=== PATIENT | female | born 1945 ===

== ENCOUNTER 2017-10-04 00:09 | Inpatient (IN) | payer MEDICARE, OTHER ==
--- NOTE | 2017-09-29 17:27 | HISTORY AND PHYSICAL ---
DATE OF ADMISSION: October 04, 2017 IDENTIFICATION/CHIEF COMPLAINT Lizet is a 71-year-old woman with the chief complaint of right knee pain. HISTORY OF PRESENT ILLNESS Patient has a long-standing history of knee arthritis, progressively painful and debilitating, refractory to conservative care. Surgery is indicated to relieve symptoms after failure of nonoperative measures. PAST MEDICAL HISTORY * Hypertension controlled on medication. * Snoring, but no sleep apnea. * Remote history of bronchitis. * History of rheumatoid and osteoarthritis. * Type 2 diabetes. * Clinical depression. PAST SURGICAL HISTORY * Hysterectomy. * Excision of Gottlieb's neuroma. * Breast reduction and tummy tuck. * Breast biopsy. ALLERGIES * PENICILLIN, causes hives. * ADHESIVE, causes skin irritation, not a true drug reaction. CURRENT MEDICATIONS * Valsartan/hydrochlorothiazide 320/25 one p.o. q.day. * Metformin 500 mg p.o. q.day. * Nifedipine 60 mg p.o. q.day. * Venlafaxine 75 mg p.o. q.day. * Simvastatin 40 mg p.o. q.day. SOCIAL HISTORY Negative for tobacco and alcohol use. FAMILY HISTORY Notable for mother with dementia, father and grandfather with MD. REVIEW OF SYSTEMS Otherwise negative. PHYSICAL EXAMINATION GENERAL: This is a healthy female. HEENT: Normocephalic, atraumatic. NECK: Supple. LUNGS: Clear. HEART: Regular. ABDOMEN: Soft. ORTHOPEDIC EXAM: The right knee has an effusion. Crepitus is noted. Gross stability is good. Extensor function is intact. She is still at the end range. IMAGING Radiographs demonstrate end-stage DJD. ASSESSMENT Right knee end-stage degenerative joint disease, progressively painful and debilitating, refractory to conservative care. PLAN Per patient request, we are going to proceed with total knee arthroplasty. The nature of the procedure, risks, benefits, the anticipated rehab course were reviewed. The risks of the procedure include, but are not limited to , major medical or anesthetic complication, infection, neurovascular injury, blood transfusion, stiffness, scarring, fracture, tendon rupture or instability , implant loosening, migration or failure, persistent or recurrent pain, need for additional surgery and other unforeseen. She understands and wishes to proceed. A signed consent was placed in the chart. No guarantees are given or implied. JEFFERSON
[2017-10-03 15:15] LABS: INR 0.96
[2017-10-04] VITALS (15 sets, daily range): BP systolic 106–168; BP diastolic 50–88
[~2017-10-04] VITALS: Ht 167.6 cm; Wt 88.5 kg
[~2017-10-04 00:09] MED LIST: ACET-2708 PO; METF-410 PO; NAPR220C12 PO; NIFE60TA77 PO; SIMV-54 PO; VALS1TAB10 PO; VENL75TA12 PO
[2017-10-04] MEDS ORDERED: FAMOTIDINE 20 MG TAB PO ONE (08:00)
[2017-10-04] MEDS ORDERED: MIDAZOLAM 2 MG/2 ML VIAL IVP PRN (08:00)
[2017-10-04] MEDS ORDERED: TRANEXAMIC AC 1000 MG/10ML SDV 1,000 MG in DEXTROSE 5% 50 ML BAG 50 ML IV ONE (08:00)
[2017-10-04] MEDS ORDERED: LIDOCAINE/SOD BICARB 8.4% SYR ID ONE (08:00)
[2017-10-04] MEDS ORDERED: cloNIDine EPIDUR INJ 100MCG/ML 40 MCG, ROPIVACAINE 0.5% 20 ML VIAL 25 ML, EPINEPHrine H... INJ ONE (08:00)
[2017-10-04] MEDS ORDERED: NORMOSOL R SOLN(*) 1000 ML BAG 1,000 ML IV PRN ×2 (08:00→10:40)
[2017-10-04] MEDS ORDERED: CLINDAMYCIN(*) 900 MG/NS 50 ML 50 ML IVPB ONE (08:00)
[2017-10-04] MEDS ORDERED: fentaNYL CITR 100 MCG/2 ML AMP ONE ×2 (08:21→09:27)
[2017-10-04] MEDS ORDERED: LIDOCAINE 2% IV 100 MG/5ML SYR ONE (08:22)
[2017-10-04] MEDS ORDERED: PROPOFOL EMUL(*) 10MG/ML 20 ML 20 ML ONE (08:24)
[2017-10-04] MEDS ORDERED: DEXAMETHASONE SOD 4 MG/ML VIAL ONE (08:46)
[2017-10-04] MEDS ORDERED: ONDANSETRON 4 MG/2 ML VIAL ONE (08:47)
[2017-10-04] MEDS ORDERED: EPHEDRINE SULFATE/NS/PF 50 MG/10 ML SYRINGE ONE (08:48)
[2017-10-04] MEDS ORDERED: KETAMINE HCL 200 MG/20 ML MDV ONE ×3 (09:02→09:40)
[2017-10-04] MEDS ORDERED: PROMETHAZINE 25 MG/ML 1 ML AMP IVP PRN (10:40)
[2017-10-04] MEDS ORDERED: BENZOCAINE/MENTHOL 1 EACH LOZG PO PRN (10:40)
[2017-10-04] MEDS ORDERED: MAGNESIUM HYDROXIDE* 30ML UDCP PO PRN (10:40)
[2017-10-04] MEDS ORDERED: diphenhydrAMINE 50 MG/ML VIAL IVP PRN (10:40)
[2017-10-04] MEDS ORDERED: ACETAMINOPHEN 325 MG TAB PO PRN (10:40)
[2017-10-04] MEDS ORDERED: ZOLPIDEM TARTRATE 5 MG TAB PO PRN (10:40)
[2017-10-04] MEDS ORDERED: FLUSH 10 ML SYR IVP PRN (10:40)
[2017-10-04] MEDS ORDERED: diphenhydrAMINE 25 MG CAP PO PRN (10:40)
[2017-10-04] MEDS ORDERED: BISACODYL 10 MG SUPP PR PRN (10:40)
[2017-10-04] MEDS ORDERED: ALBUTEROL/IPRATROPIUM 3 ML NEB ONE (11:42)
[2017-10-04] MEDS: APAP/HYDROCODONE 325/7.5 TAB PO PRN ×2 (12:33→17:01)
[2017-10-04] MEDS ORDERED: VALSARTAN 80 MG TAB PO ONE (12:50)
--- NOTE | 2017-10-04 13:04 | Hospitalist Consultation ---
History of Present Illness Requesting Physician Dr. Mobley Reason for Consult Medication Management Chief Complaint s/p right total knee replacement History of Present Illness She was admitted s/p right total knee replacement. It was reported the surgery went well and without complication. History Problems: (1) Hypertension Status: Chronic (2) Diabetes mellitus, type 2 Status: Chronic (3) Depression Status: Chronic (4) Hyperlipidemia Status: Chronic Home Meds Reported Medications Naproxen Sodium (ALEVE) 220 Mg Capsule, 220 MG PO DAILY, CAPSULE 09/28/17 Acetaminophen/Diphenhydramine (ACETAMINOPHEN PM CAPLET) 1 Each Tablet, 1 EACH PO QHS, TAB 09/28/17 Metformin Hcl (METFORMIN HCL) 500 Mg Tablet, 1 TAB PO QDAY, TAB 09/28/17 Simvastatin (SIMVASTATIN) 40 Mg Tablet, 40 MG PO DAILY, TAB 09/28/17 Venlafaxine Hcl (VENLAFAXINE HCL) 75 Mg Tab, 75 MG PO DAILY, TAB 09/28/17 Nifedipine (PROCARDIA XL) 60 Mg Tab.er.24, 60 MG PO QDAY 09/28/17 Valsartan/Hydrochlorothiazide (VALSARTAN-HCTZ 320-25 MG TAB) 1 Each Tablet, 1 EACH PO DAILY 09/28/17 Allergies: Coded Allergies: Penicillins (Verified Allergy, Mild, HIVES, 09/28/17) adhesive tape (Verified Allergy, Mild, PULLED SKIN OFF, 09/28/17) MAY USE PAPER TAPE Patient History: FH: dementia MOTHER FH: heart attack FATHER Hx Smoking: Yes (QUIT 50 YEARS AGO) Smoking Status: Former Smoker Exposure to Second Hand Smoke?: No Caffeine Intake: Coffee, Soda Caffeine/Cups Per Day: 4 CUPS A DAY Hx Alcohol Use: Yes (RARELY) Hx Substance Use Disorder: No History of IV Drug Use: No Review of Systems All Systems Reviewed/Normal: Yes, Except as Noted Exam Vital Signs Vital Signs Date Time Temp Pulse Resp B/P (MAP) Pulse Ox O2 Delivery O2 Flow Rate FiO2 10/04/17 11:58 96 16 90 10/04/17 06:50 97.2 168/88 (114) Room Air General Appearance: Alert, Awake, No Acute Distress, Afebrile Neuro: No Gross deficits Cardiovascular: Regular Rate and Rhythm Respiratory: No Respiratory Distress, Clear to Auscultation GI: Abd Soft and Non-Tender Psych: Alert & Oriented X3, Appropriate Mood & Affect Assessment and Plan Problems: (1) Status post total right knee replacement Status: Acute Assessment & Plan: Followed by Dr. Mobley. She will be placed on Aspirin 325mg for 30 days for DVT prophylaxis. She has no history of DVT or PE. (2) Hypertension Status: Chronic Assessment & Plan: She is on chronic treatment with Nifedipine, Valsartan and hydrochlorothiazide. These medications have been restarted with hold parameters. (3) Diabetes mellitus, type 2 Status: Chronic Assessment & Plan: She is on chronic treatment with Metformin. We will check her sugars AC and HS, as well as add an ADA diet. (4) Hyperlipidemia Status: Chronic Assessment & Plan: She is on chronic treatment with Simvastatin. (5) Depression Status: Chronic Assessment & Plan: She is on chronic treatment with Venlafaxine. Venous Thromboembolism Antithrombotics Is Pt On Any Antithrombotics?: No Prophylaxis Tx Contraindicated Pharmacological Contraindicati: Surgical Contraindication Problem Qualifiers (1) Hypertension: Hypertension type: essential hypertension Qualified Codes: I10 - Essential ( primary) hypertension JONA MCGRATH IN [employer] TECHNICIAN Oct 04, 2017 13:04
--- NOTE | 2017-10-04 13:35 | RADIOLOGY IMAGING REPORT ---
FACILITY: [facility] PATIENT NAME: Lizet Hernandez : 1945 MR: [id number] V: [id number] EXAM DATE: ORDERING PHYSICIAN: JOSELITO PARISI TECHNOLOGIST: Location: [facility] - [place] Patient: Lizet Hernandez : 1945 Visit/Account:[id number] Date of Sevice: 10/04/2017 Exam type: KNEE LIMITED RIGHT History: S/P RIGHT TKA Comparison: None. Findings: Two views of the right knee demonstrate a right hip arthroplasty that appears in good anatomic alignm ent. Soft tissue gas and skin tasha project over the anterior aspect this postoperative knee IMPRESSION: 1. As above Report Dictated By: April Cox MD at 10/04/2017 1:30 PM Report E-Signed By: April Cox MD at 10/04/2017 1:30 PM WSN:[email or web address]
[2017-10-04] MEDS: DIAZEPAM 5 MG TAB PO PRN (14:08)
[2017-10-04] MEDS ORDERED: NS(*) 0.9% 500 ML BAG 500 ML ONE (16:51)
[2017-10-04] MEDS ORDERED: ceFAZolin(*) 1 GM VIAL 1 GM in NS(*) 0.9% 100 ML ADDVANT BAG 100 ML IVPB SCH (17:00)
[2017-10-04] MEDS ORDERED: CLINDAMYCIN(*) 900 MG/NS 50 ML 50 ML IVPB SCH (17:00)
[2017-10-04] MEDS: CELECOXIB 200 MG CAP PO SCH (17:02)
[2017-10-04] MEDS: CLINDAMYCIN(*) 900 MG/NS 50 ML 50 ML IVPB SCH (17:03)
[2017-10-04] MEDS: INSULIN HUM LISPRO 100 UN/ML 3 ML VIAL SUBQ PRN ×2 (17:35→21:48)
--- NOTE | 2017-10-04 19:33 | OPERATIVE REPORT 1 ---
EVENT DATE: October 04, 2017 SURGEON: Gilbert Mobley MD ANESTHESIOLOGIST: Prasad Shrestha MD ANESTHESIA: General plus spinal. SUPERVISOR INSPECTING: James Vyas PA-C PREOPERATIVE DIAGNOSIS Right knee degenerative joint disease. POSTOPERATIVE DIAGNOSIS Right knee degenerative joint disease. PROCEDURE PERFORMED Right total knee arthroplasty. ESTIMATED BLOOD LOSS Minimal. DRAINS None. SPECIMENS None. COMPLICATIONS None apparent. TOURNIQUET TIME 44 minutes IMPLANTS USED PostBeyondathlon Knee System, a 5 right PS femur, 5 standard tibial baseplate, 33 mm universal cemented all-polyethylene patellar button, and an 11 mm PS tibial tray liner. Polyethylene is X3. INDICATIONS Marguerite is 70-year-old woman with intractable and disability related to end-stage knee arthritis. Surgery is indicated to relieve symptoms after failure of nonoperative measures. DESCRIPTION OF PROCEDURE Patient was taken to the operating room, placed supine on the operating table. Spinal block was administered by the anesthesiologist. General anesthesia was induced. Antibiotics were administered IV. Right lower extremity was prepped and draped in the usual sterile fashion for knee arthroplasty. Limb exsanguinated with an Esmarch bandage. Tourniquet inflated to 275 mmHg. A midline longitudinal incision was made, carried down through skin and subcutaneous tissue to the extensor mechanism. Full-thickness flaps developed far enough medially to allow medial parapatellar arthrotomy be performed. Patella was everted. Knee was put into the flexed position. Fat pad, anterior horns of the menisci, and the cruciate ligaments were debrided. A subperiosteal capsular release was performed 1 cm circumferentially around the upper plateau. A step drill was used to enter the distal femur. A 10 cm alignment guide was used to engage the isthmus, cut set for 6 degrees of valgus relative to the anatomic axis. A 10 mm resection block is applied, pinned, cuts made with an oscillating saw. AP sizing guide is applied to the distal femur. There is no hypoplasia. Three degrees of external rotation over the posterior condyle is planned. Size 5 is optimal. A double check is made due to the valgus knee to make sure this aligns appropriately with the epicondylar axis and Dillard line, and this is fine. A four-in-one cutting block is applied. Anterior, posterior, posterior chamfer, and anterior chamfer cuts are made with respectively. PS block is applied and centered. Medial and lateral bone is removed from the box. Trial femur has nice [id number] fit. Attention is turned to tibial preparation. Extramedullary guide is applied and positioned for varus, valgus, posterior slope, and rotation. It is set to resect 2 mm from the relatively deficient lateral tibial plateau. Block is pinned. Extramedullary alignment check is made, and the cut is made with an oscillating saw. After osteophyte removal and resection of posterior condylar bone, gaps are balanced and symmetric with no additional releases required. A size 5 tibial baseplate provides optimum bone coverage without soft tissue overhang. This is inserted along with a trial liner and trial femur. Knee is brought to extension. Patella is taken from a starting thickness of 22 to a residual of 14 with a patellar clamp and oscillating saw. A 32 provides optimum bony coverage without soft tissue overhang. Lug holes are drilled. Patella tracks nicely with the no-touch technique. At this point, a bit of fine tuning is done on the ligament balance for the knee. She is springy in extension. A Burdick is used to release the posterolateral capsule subperiosteally off the femur. The popliteus is recessed out of the hiatus on the femur, and at this point the tissues are ideally balanced. Next, final tibial preparation consists of assuring appropriate rotational and translational position of the component. The boss is reamed. The fin is punched. The surfaces are copiously lavaged. A bit of sclerotic bone laterally is perforated with a small drill bit to facilitate some interdigitation. Mixed polymethyl methacrylate is made and the components cemented in a single stage. The patella is held with a clamp. Once the cement has fully polymerized, the tourniquet is deflated. Hemostasis is assured. Wound is copiously lavaged. All loose debris is removed. The 11 PS tibial tray liner fills up the gap ideally, allowing the knee to drop to full extension without hyperextension, providing optimal soft tissue tension and stability. The tray is lavaged and dried, and the actual liner is locked into the baseplate. Joint is reduced. Arthrotomy is closed in flexion with #2 Ethibond, subcutaneous tissue with 3-0 Vicryl, skin with surgical tasha, Xeroform and 4 x 4's in a dry, sterile dressing and compression wrap. Patient awakened from anesthesia and taken to the recovery room in stable condition having tolerated the procedure well. Plan is for standard TKA rehab protocol. JEFFERSON
[2017-10-04] MEDS: SIMVASTATIN 40 MG TAB PO SCH (21:45)
[2017-10-05] MEDS: APAP/HYDROCODONE 325/7.5 TAB PO PRN ×6 (00:48→23:10)
[2017-10-05] MEDS: CLINDAMYCIN(*) 900 MG/NS 50 ML 50 ML IVPB SCH ×2 (00:48→09:45)
[2017-10-05] MEDS: DIAZEPAM 5 MG TAB PO PRN ×3 (05:12→20:34)
[2017-10-05 05:13] VITALS: BP 153/67
[2017-10-05 07:21] VITALS: BP 124/62
[2017-10-05] MEDS: CELECOXIB 200 MG CAP PO SCH ×2 (07:35→18:00)
[2017-10-05] MEDS: NIFEdipine XL 30 MG TABCR PO SCH (09:00)
[2017-10-05] MEDS: HYDROCHLOROTHIAZIDE 25 MG TAB PO SCH (09:00)
[2017-10-05] MEDS: metFORMIN HCL 500 MG TAB PO SCH (09:46)
[2017-10-05] MEDS: ASPIRIN 325 MG TAB PO SCH (09:46)
[2017-10-05] MEDS: VENLAFAXINE REG 75 MG TAB PO SCH (09:51)
[2017-10-05 11:07] VITALS: BP 129/69
--- NOTE | 2017-10-05 13:47 | Hospitalist Progress Note ---
Subjective Progress Notes Subjective She has no complaints this morning. Patient Complains of: Cardiovascular: No: Chest Pain Respiratory: No: Shortness of Breath Physical Exam Vital Signs Date Time Temp Pulse Resp B/P (MAP) Pulse Ox O2 Delivery O2 Flow Rate FiO2 10/05/17 11:07 98.5 81 18 129/69 (89) 92 Nasal Cannula 4.0 Intake and Output 10/06/17 07:00 Intake Total 290 ml Balance 290 ml Intake Oral 240 ml IV Total 50 ml General Appearance: Alert, Awake, No Acute Distress, Afebrile Neuro: No Gross deficits Cardiovascular: Regular Rate and Rhythm Respiratory: No Respiratory Distress, Clear to Auscultation GI: Soft and Non-Tender Psych: Alert & Oriented X3, Appropriate Mood & Affect Assessment and Plan Problems: (1) Status post total right knee replacement Status: Acute Assessment & Plan: Followed by Dr. Mobley. She will be placed on Aspirin 325mg for 30 days for DVT prophylaxis. She has no history of DVT or PE. (2) Hypertension Status: Chronic Assessment & Plan: She is on chronic treatment with Nifedipine, Valsartan and hydrochlorothiazide. These medications have been restarted with hold parameters. (3) Diabetes mellitus, type 2 Status: Chronic Assessment & Plan: She is on chronic treatment with Metformin. (4) Hyperlipidemia Status: Chronic Assessment & Plan: She is on chronic treatment with Simvastatin. (5) Depression Status: Chronic Assessment & Plan: She is on chronic treatment with Venlafaxine. Exam Sepsis Risk: No Definite Risk Problem Qualifiers (1) Hypertension: Hypertension type: essential hypertension Qualified Codes: I10 - Essential ( primary) hypertension JONA MCGRATH SHAREMILKER Oct 05, 2017 13:47
[2017-10-05 14:43] VITALS: BP 145/82
[2017-10-05 15:19] VITALS: Ht 167.6 cm; Wt 88.5 kg
--- NOTE | 2017-10-05 17:32 | RADIOLOGY IMAGING REPORT ---
FACILITY: [facility] [place] PATIENT NAME: Lizet Hernandez : 1945 MR: [id number] V: [id number] EXAM DATE: ORDERING PHYSICIAN: VAN PEDROZA TECHNOLOGIST: Location: [facility] Patient: Lizet Hernandez : 1945 Visit/Account:[id number] Date of Sevice: 10/05/2017 Exam type: CHEST SINGLE AP History: Increased oxygen demands Comparison: None. Findings: There is a subtle increased bronchovascular markings the medial left lung base. This could represent a small amount of atelectasis or developing infiltrate. There is no evidence of pleural effusions o r overt pulmonary edema. No evidence of a pneumothorax or pneumomediastinum. The cardiac silhouette is normal in size. IMPRESSION: 1. Subtle increased bronchial vascular markings in the medial left lung base which could represent a small amount of atelectasis or developing infiltrate. Report Dictated By: April Cox MD at 10/05/2017 5:28 PM Report E-Signed By: April Cox MD at 10/05/2017 5:29 PM WSN:[email or web address]
[2017-10-05 20:18] VITALS: BP 150/61
[2017-10-05] MEDS: SIMVASTATIN 40 MG TAB PO SCH (20:34)
[2017-10-05 23:16] VITALS: BP 138/65
[2017-10-06 03:17] VITALS: BP 164/79
[2017-10-06] MEDS: APAP/HYDROCODONE 325/7.5 TAB PO PRN ×3 (03:20→11:26)
[2017-10-06 07:26] VITALS: BP 136/63
[2017-10-06] MEDS ORDERED: IOPAMIDOL 76% 100 ML INFUS BTL 0 ML ONE (08:34)
[2017-10-06] MEDS ORDERED: NS 0.9% 150 ML BAG 150 ML ONE (08:34)
[2017-10-06] MEDS: ASPIRIN 325 MG TAB PO SCH (08:42)
[2017-10-06] MEDS: VENLAFAXINE REG 75 MG TAB PO SCH (08:42)
[2017-10-06] MEDS: CELECOXIB 200 MG CAP PO SCH (08:42)
[2017-10-06] MEDS: HYDROCHLOROTHIAZIDE 25 MG TAB PO SCH (08:42)
[2017-10-06] MEDS: metFORMIN HCL 500 MG TAB PO SCH (08:42)
[2017-10-06] MEDS: NIFEdipine XL 30 MG TABCR PO SCH (08:42)
[2017-10-06] MEDS ORDERED: HYDR-4308 PO (08:55)
[2017-10-06] MEDS ORDERED: IOPAMIDOL 76% 75 ML INFUS BTL 75 ML ONE ×2 (10:15→10:33)
[2017-10-06] MEDS ORDERED: NS(*) 0.9% 500 ML BAG 500 ML IV ONE (10:45)
[2017-10-06 10:52] VITALS: BP 113/57
--- NOTE | 2017-10-06 11:05 | RADIOLOGY IMAGING REPORT ---
FACILITY: [facility] - [place], [place] PATIENT NAME: Lizet Hernandez : 1945 MR: [id number] V: [id number] EXAM DATE: ORDERING PHYSICIAN: JONA MCGRATH TECHNOLOGIST: Location: [facility] - [place] Patient: Lizet Hernandez : 1945 Visit/Account:[id number] Date of Sevice: 10/06/2017 CTA CHEST WW/O CNTR (PULM ANG) HISTORY: increased oxygen use, cough TECHNIQUE: CTA chest with intravenous contrast attention to pulmonary arteries. Sagittal, coronal a nd slab 3D MIP coronal reconstructed images were also created for further evaluation and interpretati on. CONTRAST: Isovue-370 80 mls. One of the following dose optimization techniques was utilized in the performance of this exam: Autom ated exposure control; adjustment of the mA and/or kV according to the patient's size; or use of an i terative reconstruction technique. Specific details can be referenced in the facility's radiology C T exam operational policy. COMPARISON: None. FINDINGS: Heart/coronary vessels: The heart is enlarged. There is coronary calcification. There is no perica rdial effusion. Pulmonary arteries: There are no filling defects to suggest pulmonary embolus. The pulmonary arterie s may be mildly enlarged. Thoracic aorta: No findings of thoracic dissection. Mediastinum: There are small lymph nodes in the mediastinum. They measure less than 12 mm in size. There are Doppler clinical significance. There is no axillary lymphadenopathy. Lungs/pleura: There is passive atelectasis in the lung bases bilaterally. There is no infiltrate or mass. There is no endobronchial lesion. Visualized upper abdomen: There are findings of diffuse fatty infiltration of the liver. The gallbl adder surgically absent and there are surgical clips in the gallbladder fossa. The adrenal glands ar e unremarkable. Bones/soft tissues: No fracture is identified. IMPRESSION: 1. No findings of pulmonary embolus. 2. Cardiomegaly without findings of congestive heart failure or an infiltrate. 3. Fatty infiltration of the liver. 4. Status post cholecystectomy. 5. Small lymph nodes in the subcarinal region are of doubtful clinical significance. Report Dictated By: Vel Gonzalez MD at 10/06/2017 10:56 AM Report E-Signed By: Vel Gonzalez MD at 10/06/2017 11:01 AM WSN:[email or web address]
--- NOTE | 2017-10-06 11:25 | Hospitalist Progress Note ---
Subjective Progress Notes Subjective She has no complaints this morning. Patient Complains of: Cardiovascular: No: Chest Pain Respiratory: No: Shortness of Breath Physical Exam Vital Signs Date Time Temp Pulse Resp B/P (MAP) Pulse Ox O2 Delivery O2 Flow Rate FiO2 10/06/17 10:52 98.2 82 16 113/57 (75) 89 High-Flow Nasal Cannula 3.0 Intake and Output 10/07/17 07:00 Intake Total 0 ml Balance 0 ml Intake Oral 0 ml # Voids 1 General Appearance: Alert, Awake, No Acute Distress, Afebrile Neuro: No Gross deficits Cardiovascular: Regular Rate and Rhythm Respiratory: No Respiratory Distress, Other (Diminished in the right base) Psych: Alert & Oriented X3, Appropriate Mood & Affect Assessment and Plan Problems: (1) Status post total right knee replacement Status: Acute Assessment & Plan: Followed by Dr. Mobley. She will be placed on Aspirin 325mg for 30 days for DVT prophylaxis. She has no history of DVT or PE. (2) Hypertension Status: Chronic Assessment & Plan: She is on chronic treatment with Nifedipine, Valsartan and hydrochlorothiazide. These medications have been restarted with hold parameters. (3) Diabetes mellitus, type 2 Status: Chronic Assessment & Plan: She is on chronic treatment with Metformin. (4) Hyperlipidemia Status: Chronic Assessment & Plan: She is on chronic treatment with Simvastatin. (5) Depression Status: Chronic Assessment & Plan: She is on chronic treatment with Venlafaxine. (6) Hypoxia Status: Acute Assessment & Plan: She had increased demand for oxygen after surgery. CTA was done. CT scan was negative for PE or pneumonia. She will go home on oxygen and follow up with her primary care next week. Exam Sepsis Risk: No Definite Risk Problem Qualifiers (1) Hypertension: Hypertension type: essential hypertension Qualified Codes: I10 - Essential ( primary) hypertension (2) Diabetes mellitus, type 2: Diabetes mellitus complication detail: with diabetic macular edema, resolved following treatment JONA MCGRATH INDUSTRIAL AUTOMATION SPECIALIST Oct 06, 2017 11:25
== END 2017-10-06 13:30 | disposition home or self-care (01) | DRG 470 ==
LOC: OR 00:09 → MED 11:58
PROVIDERS: ADMIT Orthopaedic Surgery; ATTEND Orthopaedic Surgery
PROC: 0SRC0J9 Replacement of Right Knee Joint with Synthetic Substitute, Cemented, Open Approach (ICD-10-PCS; principal; 2017-10-04 08:31)
DX: M17.11 Unilateral primary osteoarthritis, right knee (principal); I10 Essential (primary) hypertension; E11.9 Type 2 diabetes mellitus without complications; F32.9 Major depressive disorder, single episode, unspecified; E78.5 Hyperlipidemia, unspecified; E66.9 Obesity, unspecified; Z90.710 Acquired absence of both cervix and uterus; Z88.0 Allergy status to penicillin; Z79.84 Long term (current) use of oral hypoglycemic drugs; Z68.31 Body mass index [BMI] 31.0-31.9, adult
CPT/HCPCS: 36415; 36416; 71045; 71275; 82948; 85610; 86850; 86900; 86901; 94640; 97161; J0171; J0735; J1100; J1885; J2001; J2250; J2405; J2704; J2795; J3010; J3490; J7040; J7050; J7060; Q9967